=== PATIENT | female | born 1990 | race Caucasian/White ===

== ENCOUNTER 2016-03-13 16:56 | Emergency (ER) | payer BC | END 2016-03-13 17:48 | disposition home or self-care (01) | LOC: ER 16:56 | DX: K61.0 Anal abscess (principal); I80.8 Phlebitis and thrombophlebitis of other sites; J45.909 Unspecified asthma, uncomplicated; Z88.0 Allergy status to penicillin; Z88.1 Allergy status to other antibiotic agents; Z98.890 Other specified postprocedural states ==